=== PATIENT | female | born 1995 | race African-American/Black ===

== ENCOUNTER 2022-07-13 16:55 | Emergency (ER) | payer MEDICAID, SELFPAY ==
--- NOTE | 2022-07-13 17:05 | ED.GENADULT ---
HPI - General Adult General Stated complaint: STD Exposure Source: patient and RN notes reviewed History of Present Illness HPI narrative: 27 yo F presents to urgent care with complaints of vaginal irritation x 2 days. Pt states she messaged her MD with complaints of vaginal discharge and was placed on Flagyl for BV. Pt states she completed her Abx last week and her symptoms resolved. Pt states she also just had a 2 week long menstrual period which is abnormal for her. Pt admits to getting off her topical control patch approximately 1 month ago. Pt denies any dysuria, vaginal discharge, vaginal itchiness, burning, rash, lesions, fevers, chills, dyspareunia, or abdominal pain. Pt reports bilateral lower back pain x 3 weeks. Denies any injury. Related Data Home Medications Medication Instructions Recorded Confirmed No Home Medications 07/13/22 07/13/22 Allergies Allergy/AdvReac Type Severity Reaction Status Date / Time fluconazole [From Diflucan] Allergy Swelling Verified 07/13/22 17:33 ibuprofen Allergy Rash Verified 07/13/22 17:32 Review of Systems Review of Systems: CONSTITUTIONAL: Denies fever, chills, or sweats. EYES: Denies visual changes, redness, or discharge. ENT: Denies otalgia and sore throat CARDIOVASCULAR: Denies chest pain, palpitations, or edema. RESPIRATORY: Denies cough or dyspnea. GASTROINTESTINAL: Denies abdominal pain, nausea, vomiting, or diarrhea. GENITOURINARY: vaginal irriation SKIN: Denies rash or itching. MUSCULOSKELETAL: lower back pain NEUROLOGIC: Denies headache, numbness, or weakness. PMFSH Comments At the time of my signature, I reviewed and agree with the nursing past medical, surgical, social, and family history. There is no relevant family history pertinent to the patient complaint. Exam Narrative: GENERAL: This is a well-nourished, well-developed patient, in no apparent distress. HEAD: normocephalic, atraumatic. EYES: PERRL. Sclera clear/white. Vision is grossly intact. EARS: External ears normal, auditory canals clear and without drainage, TMs normal without perforation. Hearing grossly intact. NOSE: External nose normal with no obvious nasal discharge, nares without redness, no rhinorrhea. THROAT: Mucous membranes moist, posterior pharynx clear. NECK: Neck supple, non-tender without lymphadenopathy, masses or thyromegaly. CARDIOVASCULAR: Regular rate and rhythm without murmurs, gallops, or rubs. RESPIRATORY: Clear to auscultation. Breath sounds equal bilaterally. No wheezes, rales, or rhonchi. GASTROINTESTINAL: Abdomen soft, non-tender, nondistended. Bowel sounds are active. No hepato-splenomegaly, or palpable masses. No guarding. SKIN: warm, intact with no suspicious lesions or rash, good texture and turgor. NEURO: awake, alert, and oriented to person, place and time. There were no obvious focal neurologic abnormalities. EXTREMITIES: No clubbing, cyanosis, or edema. No joint tenderness, effusion, or edema noted. BACK: Nontender without deformity or crepitance. No flank tenderness. Course Course Level of Care: Express Care Visit Vital Signs Vital signs: Vital Signs Temperature 98.3 F 07/13/22 17:12 Pulse Rate 95 07/13/22 17:12 Respiratory Rate 18 07/13/22 17:12 Blood Pressure 125/76 07/13/22 17:12 Pulse Oximetry 100 07/13/22 17:12 Oxygen Delivery Room Air 07/13/22 17:12 Temperature 98.3 F 07/13/22 17:12 Pulse Rate 95 07/13/22 17:12 Respiratory Rate 18 07/13/22 17:12 Blood Pressure 125/76 07/13/22 17:12 Pulse Oximetry 100 07/13/22 17:12 Oxygen Delivery Room Air 07/13/22 17:12 Reviewed Medical Decision Making MDM Narrative Medical decision making narrative: You will be called with any positive cultures that were taken today and/or if treatment is needed. 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 Given pt's complaints were vaginal irritation and couldn't specify anything else, it was discussed with pt the option to wait f
[2022-07-13 17:12] VITALS: BP 125/76; PULSE 95; RESP 18; TEMP 36.8; O2SAT 100
== END 2022-07-13 17:35 | disposition home or self-care (01) ==
PROVIDERS: Emergency Provider Nurse Practitioner Family
DX: N76.0 Acute vaginitis (principal)
CPT/HCPCS: 81003; 81025; 87491; 87591; 99213; G0463